=== PATIENT | female | born 1965 | race Caucasian/White ===

== ENCOUNTER 2018-11-13 08:51 | Emergency (ER) | payer MEDICAID ==
[~2018-11-13] VITALS: Wt 65.0 kg
[2018-11-13] MEDS ORDERED: ONDANSETRON 4 MG INJ IV STA (09:16)
[2018-11-13] MEDS ORDERED: KETOROLAC 15 MG INJ IV STA (09:16)
[2018-11-13] MEDS ORDERED: SOD CHLORIDE 0.9% 500 ML IV STA (09:16)
[2018-11-13] MEDS ORDERED: LORAZEPAM 0.5 MG TAB PO ONE (09:30)
--- NOTE | 2018-11-13 09:38 | ERD ---
ER Documentation Chief Complaint Chief Complaint chest pain since today when she woke up. no n/v. no sob. under stress recen HPI 53-year-old woman here for complaints of dizziness beginning this morning. She does have a 6-month history of vertigo, diagnosed by her PMD after extensive workup. She has the symptoms on a regular basis and states she feels dizzy and vertiginous similar to prior episodes. She also complains of generalized weakness, sharp nonexertional nonradiating chest pain as well. She also complains of anxiety and has a diagnosis of anxiety and states she feels stressed. She denies fevers or chills, no cough, no shortness of breath, no calf or leg swelling, no headache or blurry vision. ROS All systems reviewed and are negative except as per history of present illness. Medications Home Meds Active Scripts Lorazepam* (Ativan*) 0.5 Mg Tablet, 0.5 MG PO Q8H PRN for ANXIETY, #10 TAB Prov:DELGADO WYATT MD 11/13/18 Meclizine Hcl* (Antivert*) 12.5 Mg Tab, 25 MG PO Q6H PRN for DIZZINESS, #20 TAB Prov:DELGADO WYATT MD 11/13/18 Reported Medications [Unknown Cholesterol] No Conflict Check 11/13/18 [Unkown Htn] No Conflict Check 11/13/18 Allergies Allergies: Coded Allergies: No Known Allergy (Unverified , 11/13/18) PMhx/Soc Hypercholesterolemia, hypertension, vertigo, anxiety FmHx Family History: No diabetes Physical Exam Vitals Vital Signs Date Temp Pulse Resp B/P (MAP) Pulse Ox O2 O2 Flow FiO2 Time Delivery Rate 11/13/18 98.8 67 21 100/61 100 Room Air 11:35 (74) 11/13/18 67 18 113/61 100 Room Air 10:15 (78) 11/13/18 97.8 95 18 131/86 98 09:05 (101) Physical Exam GENERAL: Well-developed, well-nourished, well-hydrated, appears anxious, afebrile HEENT: Moist mucous membranes, pink conjunctiva, no cervical spine tenderness or step-off deformities, no goiter, no jaundice or icterus, extraocular movements intact without pain. No submandibular induration, and no pharyngeal erythema NEURO: Alert and oriented 3, cranial nerves II through XII intact bilaterally, pupils equal round reactive to light, no focal deficits or facial asymmetry, sensation intact distally Strength 5/5 in upper and lower extremities bilaterally CARDIAC: Regular rate and rhythm, no murmurs rubs or gallops LUNGS: Clear bilaterally no wheezing crackles or stridor ABDOMEN: Soft nontender, no guarding, no rigidity, no rebound, no psoas sign no obturator sign. SKIN: Warm and dry to touch, no abrasions, contusions, or hematomas, no lacerations, no ecchymosis, no target lesions, and without ulcers EXTREMITIES: No clubbing cyanosis or edema, calves are bilaterally symmetrical, no Homans sign, no popliteal cord sign. Distal pulses equal and bilateral PSYCH: Anxious Result Diagram: 11/13/1891111/13/18911 Results 24 hrs Laboratory Tests Test 11/13/18 09:12 White Blood Count 10.4 10^3/ul Red Blood Count 4.48 10^6/ul Hemoglobin 13.7 g/dl Hematocrit 40.8 % Mean Corpuscular Volume 91.1 fl Mean Corpuscular Hemoglobin 30.6 pg Mean Corpuscular Hemoglobin Concent 33.6 g/dl Red Cell Distribution Width 12.2 % Platelet Count 179 10^3/UL Mean Platelet Volume 11.9 fl Immature Granulocytes % 0.500 % Neutrophils % 65.6 % Lymphocytes % 28.0 % Monocytes % 4.4 % Eosinophils % 1.1 % Basophils % 0.4 % Nucleated Red Blood Cells % 0.0 /100WBC Immature Granulocytes # 0.050 10^3/ul Neutrophils # 6.8 10^3/ul Lymphocytes # 2.9 10^3/ul Monocytes # 0.5 10^3/ul Eosinophils # 0.1 10^3/ul Basophils # 0.0 10^3/ul Nucleated Red Blood Cells # 0.0 10^3/ul Sodium Level 143 mmol/L Potassium Level 4.3 mmol/L Chloride Level 102 mmol/L Carbon Dioxide Level 27 mmol/L Anion Gap 14 Blood Urea Nitrogen 18 mg/dl Creatinine 0.89 mg/dl Est Glomerular Filtrat Rate mL/min > 60 mL/min Glucose Level 146 mg/dl Calcium Level 10.7 mg/dl Total Bilirubin 0.4 mg/dl Direct Bilirubin 0.00 mg/dl Indirect Bilirubin 0.4 mg/dl Aspartate Amino Transf (AST/SGOT) 30 IU/L Alanine Aminotransferase (ALT/SGPT) 37 IU/L Alkaline Phosphatase 125 IU/L Troponin I < 0.012 ng/ml Total Protein 7.8 g/dl Albumin 4.2 g/dl Globulin 3.60 g/dl Albumin/Globulin Ratio 1.16 Lipase 98 U/L Current Medications Medications Dose Sig/Alea Start Time Status Last (Trade) Ordered Route PRN Stop Time Admin Dose Reason Admin Sodium 500 ml @ Q1H STAT 11/13/18 DC 11/13/18 Chloride 500 mls/hr IV 09:16 09:51 11/13/18 10:15 Ondansetron 4 mg ONCE STAT 11/13/18 DC HCl (Zofran IV 09:16 Inj) 11/13/18 09:21 Ketorolac 15 mg ONCE STAT 11/13/18 DC 11/13/18 Tromethamine IV 09:16 09:53 (Toradol) 11/13/18 09:21 Lorazepam 0.5 mg ONCE ONCE 11/13/18 DC 11/13/18 (Ativan) PO 09:30 09:48 11/13/18 09:31 Procedures/MDM IV line was established patient was placed on monitor worker rhythm strip revealed a sinus rhythm at about 90 bpm with upright P and T waves. Patient was afebrile I administered 500 cc normal saline IV, Toradol 15 mg IV, Zofran 4 mg IV, and lorazepam 0.5 mg p.o. x1 Chest X-ray 1V Interpreted by me: Soft Tissue: No acute abnormalities Bones: No acute abnormalities Mediastinum/Cardiac Silhouette/Lungs: No acute abnormalities EKG performed, read by me revealed a normal sinus rhythm at 96 bpm, normal axis, narrow QRS complex, no concerning ST elevations or depressions noted CBC and electrolytes are normal, liver function tests are normal, troponin was negative. Patient did not provide a urine sample Differential diagnoses considered, included but not limited to acute coronary syndrome, pulmonary embolism, aortic dissection, abdominal aortic aneurysm, s epsis, stroke, meningitis, encephalitis, pneumonia, appendicitis, cholecystitis, bowel obstruction, pyelonephritis, nephrolithiasis, cystitis, as well as metabolic, hematologic, and electrolyte abnormalities. As well as abscess, cellulitis, fractures, and dislocations. Patient feels much better at this time, and vital signs are normal, symptoms have improved. I did give strict instructions to return to the ED if symptoms continue or worsen, patient will otherwise follow-up with primary care physician. Patient understood instructions and agreed to plan. Disclaimer: Inadvertent spelling and grammatical errors are likely due to EHR/dictation software use and do not reflect on the overall quality of patient care. Also, please note that the electronic time recorded on this note does not necessarily reflect the actual time of the patient encounter. Departure Diagnosis: Primary Impression: Chest pain Chest pain type: unspecified Qualified Codes: R07.9 - Chest pain, unspecified Additional Impressions: Acute anxiety Vertigo Condition: DELGADO Galvan MD Nov 13, 2018 09:38
[2018-11-13] MEDS ORDERED: UNKNOWN CHOLESTEROL (10:06)
[2018-11-13] MEDS ORDERED: UNKOWN HTN (10:06)
[2018-11-13] MEDS ORDERED: LORA-441 PO (10:21)
[2018-11-13] MEDS ORDERED: MECL12.574 PO (10:21)
[2018-11-13 13:58] VITALS: BP 124/70; PULSE 68; RESP 14
== END 2018-11-13 14:01 | disposition home or self-care (01) ==
LOC: E/R 08:51
DX: R07.9 Chest pain, unspecified (principal); F41.9 Anxiety disorder, unspecified; R42 Dizziness and giddiness; I10 Essential (primary) hypertension
CPT/HCPCS: 36415; 71045; 80053; 83690; 84484; 85025; 93005; 96361; 96374; J1885; J7040; Z7502; Z7610; J2405